=== PATIENT | female | born 1975 | race Caucasian/White ===

== ENCOUNTER 2017-02-15 16:16 | Emergency (ER) | payer OTHER ==
[~2017-02-15] VITALS: Ht 170.2 cm; Wt 75.8 kg
[2017-02-15 16:25] VITALS: BP 126/78
[2017-02-15] MEDS ORDERED: DIAZEPAM 5 MG TABLET ONE (16:56)
[2017-02-15] MEDS ORDERED: ONDANSETRON ODT 4 MG ONE (16:56)
[2017-02-15] MEDS ORDERED: KETOROLAC 30 MG/1 ML ONE (16:57)
[2017-02-15] MEDS ORDERED: OXYcodone/APAP 10/325MG TABLET ONE (16:58)
[2017-02-15] MEDS ORDERED: ONDANSETRON ODT 4 MG PO ONE (17:00)
[2017-02-15] MEDS ORDERED: KETOROLAC 30 MG/1 ML IM ONE (17:00)
[2017-02-15] MEDS ORDERED: OXYcodone/APAP 10/325MG TABLET PO ONE (17:00)
[2017-02-15] MEDS ORDERED: DIAZEPAM 5 MG TABLET PO ONE (17:00)
== END 2017-02-15 18:15 | disposition home or self-care (01) ==
LOC: ED 18:09
DX: S39.012A Strain of muscle, fascia and tendon of lower back, initial encounter (principal); M51.36 Other intervertebral disc degeneration, lumbar region; X58.XXXA Exposure to other specified factors, initial encounter; Y93.89 Activity, other specified; Y92.89 Other specified places as the place of occurrence of the external cause; Y99.8 Other external cause status
CPT/HCPCS: 72110; 96372; 99284; J1885; J7512; Q0162